=== PATIENT | female | born 1985 | race Caucasian/White ===

== ENCOUNTER 2021-08-30 09:39 | Emergency (ER) | payer MEDICAID ==
[2021-08-30] MEDS: Ibuprofen 200 MG Tab PO STA (10:12)
== END 2021-08-30 10:35 | disposition home or self-care (01) ==
LOC: CC.ED 09:39
DX: S53.401A Unspecified sprain of right elbow, initial encounter (principal); Z72.0 Tobacco use; X50.1XXA Overexertion from prolonged static or awkward postures, initial encounter
CPT/HCPCS: 73080-RT; 99283; A9270-GY